=== PATIENT | male | born 1965 | race Caucasian/White ===

== ENCOUNTER 2023-10-04 09:25 | Outpatient (CLI) | payer BC, SELFPAY ==
--- NOTE | 2023-10-04 11:38 | W.ANESCHARGE ---
Anesthesia Charges Start Date/Time Anesthesia Start Date: 10/04/23 Anesthesia Start Time: 11:12 Stop Date/Time Anesthesia Stop Date: 10/04/23 Anesthesia Stop Time: 11:37
== END 2023-10-04 09:26 | disposition home or self-care (01) ==
LOC: OP CLINIC 09:30
PROVIDERS: PCP Family Medicine; Visit Provider Internal Medicine Gastroenterology
DX: Z12.11 Encounter for screening for malignant neoplasm of colon (principal); K51.00 Ulcerative (chronic) pancolitis without complications; K51.40 Inflammatory polyps of colon without complications; K63.89 Other specified diseases of intestine
CPT/HCPCS: 00811; 45380; 88305; J2704